=== PATIENT | female | born 1995 | race Caucasian/White ===

== ENCOUNTER 2016-05-08 09:53 | Inpatient (IN) | payer OTHER ==
[2016-05-08] VITALS (20 sets, daily range): BP systolic 116–146; BP diastolic 69–85
[~2016-05-08] VITALS: Ht 167.6 cm; Wt 86.0 kg
[2016-05-08] MEDS ORDERED: PRENTAB9 PO (11:37)
[2016-05-08] MEDS ORDERED: PENICILLIN G POTASSIUM IV 5 MU in D5W MINI-BAG PLUS 100 ML IV STA (11:58)
[2016-05-08] MEDS ORDERED: LR 1,000 ML IV SCH (11:58)
[2016-05-08] MEDS ORDERED: OXYTOCIN DRIP 30 UNITS in APPROPRIATE DILUENT 1 EA IV SCH ×2 (12:00→20:21)
--- NOTE | 2016-05-08 12:25 | HPEPDOC ---
Obstetrical History & Physical General Date of Admission May 08, 2016 at 11:14 History of Present Illness 20 y/o at 40+1by LMP and 21 wk US (report not available-transfer to our care at 31 wks) with reg ctx's and possible LOF several hours ago. No VB. Pos FM. Care Care: Good Care Dating Final EDC: May 07, 2016 Final EDC by: LMP, 2nd trimester (US) Past Medical History Past Obstetrical History : Past Obstetrical History: Primgravida Past Medical History Medical History denies Family History Significant Family History: No pertinent family hx Social History Marital Status: Family situation: Spouse/partner home Psychosocial History: No pertinent psych hx * Smoker: non-smoker Alcohol: denies Drugs: denies Abuse Violence Screening Have you been hit/kicked/slapp: No Have you been sexually assault: No Imunizations Tdap status: current Influenza Status: current Allergies Coded Allergies: No Known Allergies (Unverified , 05/08/16) Medications Scheduled Multivitamins/ ( 27-0.8 mg) 1 Tab Tab 1 TAB PO DAILY Physical Examination Physical Examination GENERAL: Alert and oriented times three. ABDOMEN: Gravid and non-tender to touch. FETUS: Is vertex (VTX) by sterile vaginal examination (SVE EXTREMITIES: No edema. Vital Signs/I&O Vital Signs Date Time Temp Pulse Resp B/P Pulse Ox O2 Delivery O2 Flow Rate FiO2 05/08/16 10:12 98.7 79 18 146/81 Room Air Laboratory Data Urine Culture: Other (GBD on urine CX, treated) Pertinent Laboratoy Data Blood Type: B+ RBC Antibody Screen: Negative HIV: Negative Hepatitis B: Negative Hepatitis C: Unknown Rapid Plasma Reagin: Nonreactive Rubella: Immune Varicella: Immune Chlamydia/Gonorrhea: Negative Group B Streptococcus: Positive Quad Screen Test: Unknown Cystic Fibrosis: Positive (Delta F508, negative) Glucose Tolerance Test: 86 Anatomy Ultrasound Ultrasound Date: Mar 09, 2016 Placenta Location: Anterior Normal Anatomy: Yes (normal anatomy but limited however. It was done at 35 weeks at [facility]. We do not have a report other than limited text detailing DORYS data from her 21 wk scan. See outpt chart. ) Placenta Previa: No Estimated Weight (grams): 3200 Vaginal Examination Dilation: 3 cm Effacement: 60-70% Station: -2 Cervical Consistency: Soft Cervical Position: Middle Presentation: Cephalic presentation Position: Vertex (occiput) (by limited TAUS. NUNU was 3.8 cm, done because when I did her Spec exam there was very little fluid present and on microscopy, ferning was absent, however had a convincing HPI for SROM. ) Assessment Variability: Moderate Accelerations: Positive Decelerations: None Tocometer Contractions: Yes Frequency: irregular Duration: greater than 60 seconds Assessment/Plan Assessment Questionable SROM due to no fluid seen on exam and ferning negative, however NUNU shows 3.8 cm and active fetus. Will induce with pitocin. Has a favorable cervix at 3 cm. GBS pos. Orders for pitocin placed. Plan Admit and orient. Engine Oiler and consent. Group B Streptococcus (GBS) pos. PCN 5/2.5 Labs and intravenous (IV) per unit protocol. Counseled on Pitocin and induction of labor (IOL). Anticipate [normal spontaneous delivery ()]. C-S as appropriate. SESSIONS,VIKTOR Santiago MD May 08, 2016 12:25
[2016-05-08 13:04] LABS: MEAN CORPUSCULAR HEMOGLOBIN 28.2 pg (27.0-33.0); MEAN CORPUSCULAR HGB CONC 34.9 g/dl (32.0-36.5); MEAN CORPUSCULAR VOLUME 80.9 fl (80.0-96.0); WHITE BLOOD COUNT 13.6 K/mm3 (4.0-10.0)
[2016-05-08] MEDS: LR 1,000 ML IV SCH ×2 (13:12→17:48)
[2016-05-08] MEDS ORDERED: FENTANYL 2MCG/ML ROPIVACAINE 0.2% NACL 250 ML CADD As Ordered ONE (16:42)
[2016-05-08] MEDS ORDERED: PENICILLIN G POTASSIUM IV 2.5 MU in D5W 100 ML IV SCH (17:00)
--- NOTE | 2016-05-08 18:16 | IPNPDOC ---
Text Note Date of Service The patient was seen on 05/08/16 at 18:14. NOTE Prog note NST Cat 1, reg ctx's. Pit at 6 currently, has been as high as 10 mu/min. Pt now s/p epidural. Pain better controlled, just placed. Cx /-1/vtx well applied. a/p: Doing well. Cont the pitocin per SOP. Recheck ~1999. Sessions VS,Ron, I+O VS, Ron I+O Laboratory Tests 05/08/16 12:54 Red Blood Count 4.24, Mean Corpuscular Volume 80.9, Mean Corpuscular Hemoglobin 28.2, Mean Corpuscular Hemoglobin Concent 34.9, Red Cell Distribution Width 14.0 Vital Signs Date Time Temp Pulse Resp B/P Pulse Ox O2 Delivery O2 Flow Rate FiO2 05/08/16 17:33 71 142/85 05/08/16 17:29 98.0 98 05/08/16 13:55 18 05/08/16 13:55 Room Air SESSIONS,VKITOR Santiago MD May 08, 2016 18:16
--- NOTE | 2016-05-08 20:28 | DNPDOC ---
Delivery Note Delivery Note DATE OF DELIVERY: May 08, 2016 at 11:14 PREDELIVERY DIAGNOSIS: [40]-[1]/7 weeks' gestation and labor. POST DELIVERY DIAGNOSIS: Delivered. PROCEDURE: [Spontaneous vaginal delivery HEATING ELEMENT BUILDER: Dr. Kraus ANESTHESIA: Epidural ESTIMATED BLOOD LOSS: 300 mL. FINDINGS: [8] pound [3] ounce [male] , Score [9]/[9] DELIVERY SUMMARY: Pushed very well after found to be C/C/DAPHNE. <30 min. No delay of the vtx or the shoulders. To abd in good shape, spont cry and good tone. Cord C/C by FOB. Placenta intact with massage and traction. Pit going in wide open and fundus firm. Bilat inner labial longitudinal lacs repaired with a running 3-0 vicryl, good cosmesis and hemostasis. Perineum intact. VIKTOR KRAUS MD May 08, 2016 20:28
[2016-05-08] MEDS ORDERED: RHOGAM 300 MCG (1500 IU) INJ (J2790) IM SCH (20:30)
[2016-05-08] MEDS ORDERED: MEASLES,MUMPS,RUBELLA VACCINE INJ (MMR-II) (90707) SC SCH (20:30)
[2016-05-08] MEDS ORDERED: METOCLOPRAMIDE INJ 10MG/2ML VIAL (J2765) IV PRN (20:30)
[2016-05-08] MEDS ORDERED: ACETAMINOPHEN TAB 650MG DOSE (2X325MG) PO PRN (20:30)
[2016-05-08] MEDS ORDERED: METHYLERGONOVINE MALEATE 0.2 MG TAB PO PRN (20:30)
[2016-05-08] MEDS ORDERED: IBUPROFEN 800 MG TAB PO PRN (20:30)
[2016-05-08] MEDS ORDERED: DIBUCAINE 1% OINTMENT 30GM TOP PRN (20:30)
[2016-05-08] MEDS: DOCUSATE SODIUM 100 MG CAP PO SCH (21:00)
[2016-05-09 05:53] VITALS: BP 118/61
--- NOTE | 2016-05-09 06:15 | IPNPDOC ---
Text Note Date of Service The patient was seen on 05/09/16 at 06:14. NOTE PPD1 Prog note States feeling well. No complaints. Pain controlled. Breast feeding well. VB slowing. Ambulatory and voiding well. No N/V/CP/SOB/LP. VSS Ut at U-2/firm LE no CCE a/p: Doing well. Routine PP care, likely d/c tomorrow. Sessions Ron ARMANDO, I+O Ron RICHARDSON I+O Laboratory Tests 05/08/16 12:54 Red Blood Count 4.24, Mean Corpuscular Volume 80.9, Mean Corpuscular Hemoglobin 28.2, Mean Corpuscular Hemoglobin Concent 34.9, Red Cell Distribution Width 14.0 Vital Signs Date Time Temp Pulse Resp B/P Pulse Ox O2 Delivery O2 Flow Rate FiO2 05/09/16 05:53 97.6 70 16 118/61 05/08/16 17:29 98 05/08/16 13:55 Room Air I&O- Last 24 Hours up to 6 AM 05/09/16 06:00 Intake Total 1130 ml Output Total 1950 ml Balance -820 ml SESSIONS,VIKTOR Santiago MD May 09, 2016 06:14
[2016-05-09] MEDS: PRENATAL VITAMIN TAB PO SCH (09:12)
[2016-05-09] MEDS: DOCUSATE SODIUM 100 MG CAP PO SCH ×2 (09:13→22:09)
[2016-05-09 18:00] VITALS: BP 123/58
[2016-05-10 05:53] VITALS: BP 121/75
[2016-05-10] MEDS: PRENATAL VITAMIN TAB PO SCH (07:24)
[2016-05-10] MEDS: DOCUSATE SODIUM 100 MG CAP PO SCH (07:25)
[2016-05-10] MEDS ORDERED: COLA100C PO (09:15)
[2016-05-10] MEDS ORDERED: IBUP-1114 PO (09:15)
[2016-05-10] MEDS ORDERED: ACET50TA PO (09:15)
--- NOTE | 2016-05-11 00:49 | IPN ---
DATE: 05/10/2016 This lady and has requested circumcision of their male . After discussing the risks and benefits of circumcision, the medical and nonmedical indications, penile block and aftercare, expressed understanding, penile block and aftercare, signed and witnessed consent form. We await the clearance by the e m assembler.
== END 2016-05-10 10:45 | disposition home or self-care (01) | DRG 775 ==
LOC: M LDO 09:53 → M LDI 11:14 → M OBS 22:02
PROVIDERS: ADMIT Obstetrics & Gynecology; ATTEND Obstetrics & Gynecology
PROC: 10E0XZZ Delivery of Products of Conception, External Approach (ICD-10-PCS; principal; 2016-05-08)
PROC: 0HQ9XZZ Repair Perineum Skin, External Approach (ICD-10-PCS; 2016-05-08)
PROC: 3E033VJ Introduction of Other Hormone into Peripheral Vein, Percutaneous Approach (ICD-10-PCS; 2016-05-08)
DX: O48.0 Post-term pregnancy (principal); Z37.0 Single live birth; Z3A.40 40 weeks gestation of pregnancy; O70.0 First degree perineal laceration during delivery